=== PATIENT | male | born 1945 | race Caucasian/White ===

== ENCOUNTER 2020-05-11 08:11 | Outpatient (CLI) | payer MEDICARE, OTHER, SELFPAY ==
--- NOTE | 2020-05-11 08:17 | XR_ITS ---
WS: [id number] Left knee, 3 views, 05/11/2020 Clinical Data: LT KNEE PAIN Comparison: Left knee, 09/28/2018. Findings: No fractures or dislocations are seen. The joint spaces are normal. The patella is intact. The soft t issues are unremarkable. There is a spur of the anterior superior patella. XR/XR knee LT 3V* [id number] Impression: Minimal patellar spurring.
--- NOTE | 2020-05-11 08:17 | XR_ITS ---
WS: [id number] Lumbar spine, 3 views, 05/11/2020 Clinical Data: BACK PAIN Comparison: Lumbar spine, 09/28/2018. Findings: There is severe osteoarthritic change involving lumbar vertebral bodies from L1 through L4. Degenerat [place] changes of the lower thoracic vertebral bodies is present. There is degenerative disc narrowing a t T12-L1, L1-L2, L2-L3, L3-L4 and L5-S1. No compression fractures are seen. There is a levoscoliosis of the upper lumbar spine. The transverse processes and SI joints are normal. There is posterior osteophyte formation at L3-L4 with a retrolis thesis of L3 on L4 of 0.6 cm unchanged. XR/XR lumbar spine 2-3V* [id number] Impression: 1. Severe osteoarthritic change with multiple levels of degenerative disc disea se. 2. Levoscoliosis. 3. Retrolisthesis of 0.6 cm of L3 on L4.
== END 2020-05-11 08:12 | disposition home or self-care (01) ==
LOC: RADWPI 08:14
PROVIDERS: PCP Family Medicine; Visit Provider Surgery
DX: M54.10 Radiculopathy, site unspecified (principal); M25.562 Pain in left knee; M51.36 Other intervertebral disc degeneration, lumbar region; M41.86 Other forms of scoliosis, lumbar region
CPT/HCPCS: 72100; 73562

== ENCOUNTER 2021-04-22 17:09 | Emergency (ER) | payer MEDICARE, OTHER, SELFPAY ==
[2021-04-22 17:43] VITALS: BP 116/79; PULSE 105; RESP 18; TEMP 37.4; O2SAT 97; BMI 26.8
--- NOTE | 2021-04-22 18:13 | W.ED.NAVMDI ---
HPI - Nausea/Vomiting/Diarrhea General: Chief complaint: Nausea/Vomiting/Diarrhea Stated complaint: STOMACH PAINS/THROWING UP BLOOD Time Seen by Provider: 04/22/21 18:13 History of Present Illness: HPI Narrative: Mr Lawrence is a 75-year-old gentleman with significant past medical history of atrial fibrillation on Eliquis, hypertension, hyperlipidemia presents emergency department due to hematemesis. He reports being at his baseline health. When he woke up this morning he felt nauseous and laid in bed for a while. He got up to go the bathroom and had one episode of red emesis. He has not had recurrence however he has noticed dark stools all day. He denies similar episodes in the past. No alcohol abuse. No other specific exacerbating or alleviating factors identified. Review of Systems General: Reports: 10 or more systems reviewed and unremarkable except in HPI and below PFSH ED PFSH: Medical History (Updated 04/24/21 @ 10:22 by Eulogio Shanks MD) Atrial fibrillation HTN (hypertension) Hyperlipidemia NEGRA on CPAP Family History Father CAD (coronary artery disease) Sister Cancer LUNG Brother Cancer PROSTATE Social History Smoking and tobacco status: former smoker Lives independently: Yes Marital status: / service: Yes branch: [employer] branch details: 6 YEARS Physical Exam Narrative: EXAM NARRATIVE: GENERAL/CONSTITUTIONAL - well-appearing. No acute distress. Eyes -normal mucous membranes, no conjunctival injection ENMT - Atraumatic external nose and ears. Moist mucous membranes NECK - supple. trachea midline CARDIOVASCULAR -tachycardic rate and regular rhythm. Normal peripheral perfusion.. Peripheral pulses 2+ and equal RESPIRATORY -clear to auscultation bilaterally. No retractions or accessory muscle use. ABDOMEN/GI - minimally tender. Nondistended. No tenderness to percussion or evidence of peritonitis MSK - Extremities without obvious deformity or tenderness to palpation SKIN - Warm, Dry NEURO - alert and appropriately oriented. Moves all extremities equally. Course ED course: - Patient was seen and evaluated by me at bedside - Patient placed on cardiac monitors, IV access obtained - Initial evaluation notable for no acute distress, nontoxic appearance. No active vomiting, patient has only had the one episode. Protonix ordered. - Labs notable for leukocytosis of unclear etiology. Initial hemoglobin 14.8. Metabolic panel notable for elevated BUN, creatinine normal. - Imaging notable for no acute abnormality to explain patient's symptoms. No evidence of active contrast extravasation - Rectal exam with brown stool, mildly oily, no red streaks, guaiac positive. - Discussed case with gastroenterology on-call. Patient will be seen in the next 2 days in clinic for consideration of endoscopy. Hold anticoagulation until that time. - Repeat hemoglobin without precipitous drop. Heart rate improved after fluids. - Upon serial reexamination after treatment the patient was similar, no recurrence of hematemesis. Patient has not had multiple episodes of bowel movements. - Based on patient history, evaluation, labs, and imaging as interpreted the most likely cause of the patient's condition is hematemesis/GI bleed of unclear etiology. - The results of ED evaluation were discussed with the patient including prescriptions and/or symptomatic cares (if applicable) including appropriate and responsible use, followup plan, and return precautions. The patient verbalized understanding and felt safe for discharge. - Patient discharged in satisfactory condition. Vital Signs: Vital signs: Vital Signs Temperature 99.3 F 04/22/21 17:43 Pulse Rate 68 04/23/21 00:34 Respiratory Rate 18 04/23/21 00:34 Blood Pressure 146/78 04/23/21 00:34 Pulse Oximetry 96 04/23/21 00:34 MDM - Nausea/Vomiting/Diarrhea Medical Records: Attestation: I reviewed the patient's medical records. Lab Data: Attestation: I reviewed the patient's lab results. Labs: Lab Results 04/22/21 04/22/21 04/22/21 19:02 19:02 19:02 WBC 16.2 10^3/uL H 10 ^3/uL (4.0-10.0) RBC 4.86 10^6/uL 10^6 /uL (4.1-5.3) Hgb 14.8 g/dL g/dL (11.7-16.6) Hct 43.9 % % (42.0-52.0) MCV 90.3 fl fl (80-94) MCH 30.5 pg pg (28.0-34.0) MCHC 33.7 g/dL g/dL (30.0-36.0) RDW 12.4 % % (12.1-15.1) Plt Count 241 10^3/cmm 10^3 /cmm (130-400) MPV 10.7 fL H fL (7.4-10.4) Neut % (Auto) 78.5 % % Lymph % (Auto) 12.2 % % [place] % (Auto) 8.5 % % Eos % (Auto) 0.1 % % Baso % (Auto) 0.2 % % Neut # (Auto) 12.72 10^3/uL H 1 0^3/uL (1.8-7.7) Lymph # (Auto) 2.0 10^3/uL 10^3/ uL (0.8-4.8) [place] # (Auto) 1.4 10^3/uL H 10^ 3/uL (0.2-0.9) Eos # (Auto) 0.0 10^3/uL 10^3/ uL (0.0-0.8) Baso # (Auto) 0.0 10^3/uL 10^3/ uL (0.0-0.1) Nucleated RBC % (a uto) 0 % % Nucleated RBCs # 0.0 /100WBC /100W BC PT INR Sodium 142 mmol/L mmol/L (136-145) Potassium 4.8 mmol/L mmol/L (3.5-5.1) Chloride 106 mmol/L mmol/L (98-107) Carbon Dioxide 25 mmol/L mmol/L (22-29) Anion Gap 15.8 (5-19) BUN 56 mg/dL H mg/dL (8-23) Creatinine 1.0 mg/dL mg/dL (0.7-1.2) GFR Calculation Not Reportable Glucose 98 mg/dL mg/dL (65-115) Calculated Osmolal ity 309 mOsm/kg H mOs m/kg (285-295) Calcium 9.4 mg/dL mg/dL (8.5-10.5) Total Bilirubin 0.5 mg/dL mg/dL (0.15-1.2) AST 13 U/L U/L (0-40) ALT 12 U/L U/L (0-41) Alkaline Phosphata se 50 IU/L IU/L (40-130) Troponin T Baselin e Troponin T 120 Min yocha dehe Delta Troponin T Total Protein 6.6 g/dL g/dL (6.6-8.7) Albumin 4.2 g/dL g/dL (3.5-5.2) Globulin 2.4 g/dL g/dL (1.3-4.6) Blood Type A Positive Rho(D) Type Positive Antibody Screen Negative 04/22/21 04/22/21 04/22/21 19:02 19:02 21:27 WBC RBC Hgb Hct MCV MCH MCHC RDW Plt Count MPV Neut % (Auto) Lymph % (Auto) [place] % (Auto) Eos % (Auto) Baso % (Auto) Neut # (Auto) Lymph # (Auto) [place] # (Auto) Eos # (Auto) Baso # (Auto) Nucleated RBC % (a uto) Nucleated RBCs # PT 14.70 SECONDS SEC ONDS (12.1-14.9) INR 1.12 (0.8-1.2) Sodium Potassium Chloride Carbon Dioxide Anion Gap BUN Creatinine GFR Calculation Glucose Calculated Osmolal ity Calcium Total Bilirubin AST ALT Alkaline Phosphata se Troponin T Baselin e 22 ng/L H ng/L (0-15) Troponin T 120 Min yocha dehe 23.10 ng/L H ng/L (0-15) Delta Troponin T 1.10 ABS# ABS# (0-10) Total Protein Albumin Globulin Blood Type Rho(D) Type Antibody Screen 04/22/21 22:40 WBC RBC Hgb 13.3 g/dL g/dL (11.7-16.6) Hct MCV MCH MCHC RDW Plt Count MPV Neut % (Auto) Lymph % (Auto) [place] % (Auto) Eos % (Auto) Baso % (Auto) Neut # (Auto) Lymph # (Auto) [place] # (Auto) Eos # (Auto) Baso # (Auto) Nucleated RBC % (a uto) Nucleated RBCs # PT INR Sodium Potassium Chloride Carbon Dioxide Anion Gap BUN Creatinine GFR Calculation Glucose Calculated Osmolal ity Calcium Total Bilirubin AST ALT Alkaline Phosphata se Troponin T Baselin e Troponin T 120 Min yocha dehe Delta Troponin T Total Protein Albumin Globulin Blood Type Rho(D) Type Antibody Screen EKG Data^: EKG 1: Attestation: I personally reviewed and interpreted this EKG as follows: EKG interpretation date: 04/22/21 EKG interpretation time: 21:55 Interpretation: Twelve-lead EKG shows a regular rhythm at a rate of 88. DC interval 188, QRS duration 96, QTc 373. Normal axis. Interpretation: Sinus rhythm. Discharge Plan Discharge Patient Disposition: Home Clinical Impression: Acute GI bleeding Condition: Stable Prescriptions: New pantoprazole [Protonix] 40 mg tablet,delayed release (DR/EC) 40 mg PO BID 10 Days Qty: 20 RF: 0 No Action hydrocodone-acetaminophen 10-325 mg tablet 1 tab PO Q8H PRN (Reason: Pain) RF: 0 ferrous sulfate [Feosol] 325 mg (65 mg iron) tablet 325 mg PO DAILY RF: 0 omega-3 fatty acids [Fish Oil Concentrate] 1,000 mg capsule 1,000 mg PO BID RF: 0 fluticasone propionate [Flonase Allergy Relief] 50 mcg/actuation spray,suspension 1 spray INTRANASAL DAILY RF: 0 PreserVision AREDS 14,320-226-200 pcva-fw-rerq capsule 1 cap PO BID RF: 0 magnesium oxide 400 mg magnesium capsule 400 mg PO DAILY RF: 0 vitamin E 200 unit capsule 200 unit PO DAILY RF: 0 rosuvastatin 20 mg tablet 10 mg PO DAILY RF: 0 oxybutynin chloride 10 mg tablet extended release 24hr 10 mg PO DAILY RF: 0 acetaminophen 325 mg capsule 650 mg PO BID RF: 0 aspirin [Adult Aspirin Regimen] 81 mg tablet,delayed release (DR/EC) 81 mg PO DAILY RF: 0 digoxin [Digox] 125 mcg (0.125 mg) tablet 125 mcg PO DAILY Qty: 90 RF: 3 chlorthalidone 25 mg tablet 12.5 mg PO DAILY Qty: 45 RF: 3 amlodipine 5 mg tablet 5 mg PO DAILY Qty: 90 RF: 3 Discharge Orders: Discharge ED (Routine); Ordered 04/23/21 Ordered By: Tayo Garner Referrals: Gene Garcia MD [Primary Care Provider] - Discharge Diet: Clear Liquid Discharge Activity: Increase activity as tolerated Patient Instructions: Gastrointestinal Bleeding (ED) Activity Restrictions/Additional Instructions: Thank you for visiting the emergency department. You were seen and evaluated for vomiting blood. The exact cause of your symptoms is unclear however is concerning for GI bleed. After discussion with gastroenterology on-call as well as clinical exam including repeat lab work and rectal exam we plan to have you follow-up as an outpatient. Please call first thing in the morning to arrange an appointment with Dr. Shanks, let the person you talk to know that I spoke with Dr. Shanks regarding your case. Additionally I will have case management work on getting a new appointment as well if you do not get one yourself. Per his recommendation please do not take your Eliquis until you follow-up with him. Please maintain clear liquid diet. Return to the emergency department for any more episodes of vomiting blood, blood per rectum, lightheadedness, dizziness, chest pain, shortness of breath, or anything else that you are concerned about and feel needs emergency department evaluation. Coding Level of Care Code ED Picture Frame Maker for Edelmira Jiménez
--- NOTE | 2021-04-22 18:27 | CTR_ITS ---
PROCEDURE INFORMATION: Exam: CT Abdomen And Pelvis With Contrast Exam date and time: 04/22/2021 6:27 PM Age: 75 years old Clinical indication: Vomiting; Additional info: Hematemesis, gi bleed TECHNIQUE: Imaging protocol: Computed tomography of the abdomen and pelvis with contrast. Radiation optimization: All CT scans at this facility use at least one of these dose optimization techniques: automated exposure control; mA and/or kV adjustment per patient size (includes targeted exams where dose is matched to clinical indication); or iterative reconstruction. Contrast material: OMNI 300; Contrast volume: 95 ml; Contrast route: INTRAVENOUS (IV); COMPARISON: CT Abdomen/Pelvis Renal [id number] 09/08/2016 12:22 PM RADIATION DOSE METRICS: Total DLP (mGy-cm): 1631.51 FINDINGS: Lungs: Emphysematous changes. Liver: Hepatic steatosis. Gallbladder and bile ducts: Normal. No calcified stones. No ductal dilation. Pancreas: Normal. No ductal dilation. Spleen: Normal. No splenomegaly. Adrenal glands: Normal. No mass. Kidneys and ureters: Left kidney nonobstructing renal calyceal stones. Stomach and bowel: Diverticulosis without diverticulitis. Appendix: No evidence of appendicitis. Intraperitoneal space: Unremarkable. No free air. No significant fluid collection. Vasculature: Unremarkable. No abdominal aortic aneurysm. Lymph nodes: Unremarkable. No enlarged lymph nodes. Urinary bladder: Unremarkable as visualized. Reproductive: Unremarkable as visualized. Bones/joints: Unremarkable. No acute fracture. Soft tissues: Bilateral bowel containing inguinal hernias without inflammation or dilation. CT/CT abdomen pelvis w con* [id number] IMPRESSION: 1. Negative for acute inflammatory process the abdomen or pelvis, negative for contrast extravasation seen to suggest gastrointestinal bleeding. 2. Emphysematous changes. 3. Hepatic steatosis. 4. Left kidney nonobstructing renal calyceal stones. 5. Bilateral bowel containing inguinal hernias without inflammation or dilation. 6. Diverticulosis without diverticulitis. Radiation Dose CTDIVOL = (mGy): DLP = 1631.51 (mGy-cm)
[2021-04-22] MEDS: pantoprazole 40 mg SDV 80 MG IVP (19:07)
[2021-04-22 19:21] LABS: Basophils % 0.2 %; Eosinophils % 0.1 %; Hematocrit 43.9 % (42.0-52.0); Hemoglobin 14.8 g/dL (11.7-16.6); Lymphocytes % 12.2 %; Mean Corpuscular HGB Conc 33.7 g/dL (30.0-36.0); Mean Corpuscular Hemoglobin 30.5 pg (28.0-34.0); Mean Corpuscular Volume 90.3 fl (80-94); Mean Platelet Volume 10.7 fL (7.4-10.4); Monocytes # 1.4 10^3/uL (0.2-0.9); Monocytes % 8.5 %; Neutrophils # 12.72 10^3/uL (1.8-7.7); Neutrophils % 78.5 %; Nucleated Red Blood Cells % 0 %; Platelet Count 241 10^3/cmm (130-400); Red Blood Count 4.86 10^6/uL (4.1-5.3); Red Cell Distribution Width 12.4 % (12.1-15.1); White Blood Count 16.2 10^3/uL (4.0-10.0)
--- NOTE | 2021-04-22 19:29 | XRR_ITS ---
PROCEDURE INFORMATION: Exam: XR Chest Exam date and time: 04/22/2021 7:29 PM Age: 75 years old Clinical indication: Prior surgery; Surgery type: Bilateral shoulders; Patient HX: Hematemesis/abd pain x today TECHNIQUE: Imaging protocol: XR of the chest. Views: 1 view. COMPARISON: CR Chest 1 [place] [id number] 08/15/2014 10:45 AM FINDINGS: Lungs: Unremarkable. No consolidation. Pleural spaces: Unremarkable. No pleural effusion. No pneumothorax. Heart/Mediastinum: Unremarkable. No cardiomegaly. Bones/joints: Unremarkable. XR/XR chest 1V portable [id number] IMPRESSION: No acute findings. Radiation Dose CTDIVOL = (mGy): DLP = (mGy-cm)
[2021-04-22 19:37] LABS: Alanine Aminotransferase 12 U/L (0-41); Albumin Level 4.2 g/dL (3.5-5.2); Alkaline Phosphatase 50 IU/L (40-130); Aspartate Amino Transferase 13 U/L (0-40); Blood Urea Nitrogen 56 mg/dL (8-23); Calcium 9.4 mg/dL (8.5-10.5); Carbon Dioxide 25 mmol/L (22-29); Chloride 106 mmol/L (98-107); Globulin 2.4 g/dL (1.3-4.6); Glucose 98 mg/dL (65-115); Osmolality Calculated 309 mOsm/kg (285-295); Sodium 142 mmol/L (136-145); Total Bilirubin 0.5 mg/dL (0.15-1.2); Total Protein 6.6 g/dL (6.6-8.7)
[2021-04-22 19:40] LABS: INR 1.12 (0.8-1.2)
[2021-04-22 19:41] LABS: Anion Gap 15.8 (5-19); Potassium 4.8 mmol/L (3.5-5.1)
[2021-04-22] MEDS: iohexol 300 mg/mL 100 mL Btl IV (19:57)
--- NOTE | 2021-04-22 20:13 | ECG_ITS ---
[facility] Test Date: 2021-04-22 Pat Name: Glenroy Lawrence Department: Room: Gender: Male Manager Occupational: : 1945 Requested By: Tayo Garner Order Number: [id number] Emma MD: Alyssa Han M.D. Measurements Intervals [place] Rate: 81 P: 47 FL: 187 QRS: 50 QRSD: 100 T: 53 QT: 337 QTc: 393 Interpretive Statements SINUS RHYTHM NONSPECIFIC ST & T-WAVE ABNORMALITY Compared to ECG 08/15/2014 11:34:51 T-wave abnormality now present Atrial fibrillation no longer present Electronically Signed On 04-23-2021 21:48:59 NUTRITION SPECIALIST by Alyssa Han M.D. [id number]
[2021-04-22 20:30] LABS: Troponin(5th) Baseline 22 ng/L (0-15)
--- NOTE | 2021-04-22 22:13 | ECG_ITS ---
[facility] Test Date: 2021-04-22 Pat Name: Glenroy Lawrence Department: Room: Gender: Male Director Of Strategic Programs: : 1945 Requested By: Tayo Garner Order Number: [id number] Emma MD: Mariah Velazco M.D. Measurements Intervals [place] Rate: 88 P: 31 MN: 188 QRS: 44 QRSD: 96 T: 46 QT: 328 QTc: 397 Interpretive Statements SINUS RHYTHM NONSPECIFIC ST & T-WAVE ABNORMALITY Compared to ECG 08/15/2014 11:34:51 T-wave abnormality now present Atrial fibrillation no longer present Electronically Signed On 04-23-2021 12:54:56 MEASURER by Mariah Velazco M.D. [id number]
[2021-04-22 22:19] VITALS: BP 124/81; BP 132/81; BP 135/76; PULSE 107; PULSE 114; PULSE 80
[2021-04-22] MEDS: sodium chloride 0.9% 1,000 ML 999 ML IV (22:37)
[2021-04-22 22:55] VITALS: BP 134/96; PULSE 80; RESP 18; O2SAT 96
[2021-04-22 23:08] LABS: Hemoglobin 13.3 g/dL (11.7-16.6)
[2021-04-23 00:34] VITALS: BP 146/78; PULSE 68; RESP 18; O2SAT 96
--- NOTE | 2021-04-23 11:42 | DCPLANNER ---
manager combination had message to schedule a follow up appointment for patient with Dr. Shanks. manager combination called the office of Dr. Shanks, spoke with Alexsandra, gave clinic patients information. A follow up appointment was scheduled for Thursday, April 24, 2021 at 9:[address] Shanks. manager combination called patient and gave patient the appointment information.
--- NOTE | 2021-06-30 15:49 | DCPLANNER ---
Patient had a follow up appointment scheduled with Dr. Shanks - patient did attend appointment.
== END 2021-04-23 00:36 | disposition home or self-care (01) ==
PROVIDERS: Emergency Provider Emergency Medicine; PCP Family Medicine
DX: K92.2 Gastrointestinal hemorrhage, unspecified (principal); Z79.82 Long term (current) use of aspirin; I10 Essential (primary) hypertension; E78.5 Hyperlipidemia, unspecified; Z87.891 Personal history of nicotine dependence
CPT/HCPCS: 36415; 71045; 74177; 80053; 84484; 85018; 85025; 85610; 86850; 86900; 93005; 96361; 96374; 99284; C9113; J7030; Q9967

== ENCOUNTER 2021-04-25 05:46 | Day surgery (SDC) | payer MEDICARE, OTHER, SELFPAY ==
[2021-04-25 06:31] VITALS: BP 148/74; PULSE 62; RESP 18; TEMP 36.4; O2SAT 98
[2021-04-25] MEDS: sodium chloride 0.9% 1,000 ML 30 ML IV (06:31)
[2021-04-25 06:32] VITALS: BMI 25.7
--- NOTE | 2021-04-25 06:50 | ANES.PREANE2 ---
Pre-Anesthetic Assessment Pre-Anesthetic Assessment: Height/Weight: Height 1.83 m Weight 86.183 kg Temp Pulse Resp BP Pulse Ox 97.6 F 62 18 148/74 98 04/25/21 06:31 04/25/21 06:31 04/25/21 06:31 04/25/21 06:31 04/25/21 06:31 Preop Diagnosis: hematemesis Proposed Procedure: Operation Date: 04/25/21 07:00 Proposed Procedures p EGD 79746 K92.0(Not Applicable) - Eulogio Shanks MD Was Beta Faith taken within 24 hours: N/A Was Clonidine taken within 24 hours: N/A Last intake: Intake Last Liquid Date 04/24/21 Last Liquid Time 23:55 Last Solid Date 04/24/21 Last Solid Time 18:00 Last Intake: 23:55 Social: Social History: No alcohol and No tobacco Comment: formerr smoker >30 years ago Exam: Pre-Anes Outpt Exam: alert and oriented x 3 Airway: Submandibular: WNL Cervical ROM: WNL MP: 1 Dentition: Full History/ROS: No significant history except as noted Pulmonary: Pulmonary: HUBBARD (just in the past few days) CV/HEM: CV/HEM: Afib and HTN : : None reported Hepatic: Hepatic: None reported GI: GI: None reported Metabolic: Metabolic: None reported Musc/skel: Musc/skel: None reported Neuropsych: Neuropsych: None reported Anesthetic Plan: ASA status: 3 Anesthesia: Anesthesia Evaluation and MAC Risk of > 500 ml blood loss (7ml/kg in children): No Meds/Allergies Current Medications: Current Medications Generic Name Dose Route Start Last Admin Trade Name Freq PRN Reason Stop Dose Admin Sodium Chloride 1,000 mls @ 30 ml s/hr 04/25/21 06:15 04/25/21 06:31 Sodium Chloride 0.9% IV 04/26/21 06:14 30 mls/hr .Q24H RAYMOND Administration PFSH Anesthesia PFSH: Medical History (Updated 04/24/21 @ 10:22 by Eulogio Shanks MD) Atrial fibrillation HTN (hypertension) Hyperlipidemia NEGRA on CPAP Family History Father CAD (coronary artery disease) Sister Cancer LUNG Brother Cancer PROSTATE Social History Smoking and tobacco status: former smoker Lives independently: Yes Marital status: / service: Yes branch: [employer] branch details: 6 YEARS Data Anesthesia Cardiac Studies: No Data to Display
[2021-04-25 07:26] VITALS: BP 113/63; PULSE 58; RESP 16; TEMP 36.1; O2SAT 97
[2021-04-25 08:01] VITALS: BP 127/73; PULSE 56; RESP 18; O2SAT 97
--- NOTE | 2021-04-25 13:39 | ANE.PACU2 ---
Inpatient post-anesthesia follow up: Airway intact: Yes Vital signs: Temperature 97 F Pulse Rate 56 Respiratory Rate 18 Blood Pressure 127/73 Pulse Oximetry 97 Oxygen Delivery Me thod Room Air Oxygen Flow Rate Fraction of Inspir ed Oxygen Hydration adequate: Yes Nausea and vomiting: No Pain level: 1 Mental status: Baseline
[2021-04-26 06:18] LABS: H. Pylori / CLO Test Positive
== END 2021-04-25 08:11 | disposition home or self-care (01) ==
PROVIDERS: PCP Family Medicine; Visit Provider Internal Medicine
PROC: 0DJ08ZZ Inspection of Upper Intestinal Tract, Via Natural or Artificial Opening Endoscopic (ICD-10-PCS; CPT 43235; principal; 2021-04-25 07:00)
DX: K92.0 Hematemesis (principal); K25.7 Chronic gastric ulcer without hemorrhage or perforation; I48.91 Unspecified atrial fibrillation; I10 Essential (primary) hypertension; E78.5 Hyperlipidemia, unspecified; G47.33 Obstructive sleep apnea (adult) (pediatric); Z82.49 Family history of ischemic heart disease and other diseases of the circulatory system; Z80.1 Family history of malignant neoplasm of trachea, bronchus and lung; Z80.42 Family history of malignant neoplasm of prostate; Z79.82 Long term (current) use of aspirin; Z87.891 Personal history of nicotine dependence
CPT/HCPCS: 43239; 87077; 96365; J2704; J7030

== ENCOUNTER → 2022-12-18 12:16 | Outpatient (BNVA) | payer MEDICARE, OTHER, SELFPAY | PROVIDERS: PCP Family Medicine; Visit Provider Internal Medicine Cardiovascular Disease | DX: I10 Essential (primary) hypertension (principal); I48.91 Unspecified atrial fibrillation; E78.5 Hyperlipidemia, unspecified; G47.33 Obstructive sleep apnea (adult) (pediatric); Z99.89 Dependence on other enabling machines and devices; Z87.891 Personal history of nicotine dependence | CPT/HCPCS: 99213 ==

== ENCOUNTER 2023-04-02 10:30 | Outpatient (CLI) | payer OTHER, SELFPAY ==
--- NOTE | 2023-04-02 | US_ITS ---
WS: [id number] TESTICULAR ULTRASOUND HISTORY: SWELLING COMPARISON: Prior CT pelvis 04/22/2021 TECHNIQUE: Real-time and color Doppler imaging or utilized to perform a testicular ultrasound. Right testicle: 4.7 cm x 3.3 cm x 2.5 cm. Normal size and echogenicity. No mass or torsion. Normal color Doppler is present throughout. Systolic and diastolic velocities are both present. No significant hydrocele. Peristalsing loops of bowel are noted adjacent to the testicle. Testicle is being displaced anteriorly. Right epididymis: Normal epididymis with no increased vascularity. Left testicle: 4.6 cm x 2.2 cm x 2.8 cm. Normal size and echogenicity. No mass or torsion. Normal color Doppler is present throughout. Systolic and diastolic velocities are both present. No significant hydrocele. Area of increased echogenicity along the LEFT inguinal canal is probably om ental fat. There is no peristalsis in this does not appear to be bowel wall. Left epididymis: There is a cystic mass with low-level echoes in the expected location of the epididy mal head. This is most likely a spermatocele measuring 5.8 x 3.2 x 4.8 cm. IMPRESSION: 1. RIGHT scrotal hernia containing a loop of bowel which is peristalsing. No strangulation at this ti me. There is significant amount of GI tract in the scrotum. Recommend surgical evaluation. 2. Omental fat herniation along the LEFT inguinal canal. 3. No testicular mass or torsion. 4. Large LEFT spermatocele.
== END 2023-04-02 10:31 | disposition home or self-care (01) ==
LOC: RAD 10:31
PROVIDERS: PCP Family Medicine; Visit Provider Surgery
DX: K40.90 Unilateral inguinal hernia, without obstruction or gangrene, not specified as recurrent (principal); N50.89 Other specified disorders of the male genital organs; N43.40 Spermatocele of epididymis, unspecified
CPT/HCPCS: 76870

== ENCOUNTER → 2023-05-12 12:37 | Outpatient (BNVA) | payer MEDICARE, SELFPAY | PROVIDERS: PCP Family Medicine; Visit Provider Internal Medicine Cardiovascular Disease | DX: I48.91 Unspecified atrial fibrillation (principal); I10 Essential (primary) hypertension; E78.5 Hyperlipidemia, unspecified; G47.33 Obstructive sleep apnea (adult) (pediatric); Z99.89 Dependence on other enabling machines and devices; Z87.891 Personal history of nicotine dependence | CPT/HCPCS: 99214 ==

== ENCOUNTER → 2023-11-11 11:49 | Outpatient (BNVA) | payer OTHER, SELFPAY | PROVIDERS: PCP Family Medicine; Visit Provider Internal Medicine Cardiovascular Disease | DX: E78.5 Hyperlipidemia, unspecified (principal); I10 Essential (primary) hypertension; I48.91 Unspecified atrial fibrillation; G47.33 Obstructive sleep apnea (adult) (pediatric); Z99.89 Dependence on other enabling machines and devices; Z87.891 Personal history of nicotine dependence | CPT/HCPCS: 99213 ==